=== PATIENT | female | born 1955 | race Caucasian/White ===

== ENCOUNTER 2019-02-21 10:16 | Outpatient (CLI) | payer OTHER | END 2019-02-21 13:52 | disposition home or self-care (01) | LOC: MRI 10:16 | DX: M48.02 Spinal stenosis, cervical region (principal); M43.12 Spondylolisthesis, cervical region; G82.22 Paraplegia, incomplete; G89.29 Other chronic pain; M96.1 Postlaminectomy syndrome, not elsewhere classified; M06.89 Other specified rheumatoid arthritis, multiple sites | CPT/HCPCS: 72141; 72146; 72148 ==